=== PATIENT | male | born 1935 | race Caucasian/White ===

== ENCOUNTER → 2018-02-12 | Day surgery (SDC) | payer MEDICARE, OTHER ==
[~2018-02-12] MED LIST: Dextrose 5%-0.45% NaCl 1,000 ML IV SCH; Midazolam 1 MG/ML 2 ML SDV IV ONE; Midazolam 1 MG/ML 2 ML SDV ONE; Sodium Chloride 0.9% 10 ML Syringe FLUSH PRN; fentaNYL 100 MCG/2 ML SDV IV ONE; fentaNYL 100 MCG/2 ML SDV ONE
--- NOTE | 2018-02-12 14:08 | OR ---
DATE: 02/12/2018 PROCEDURES PERFORMED: Total colonoscopy, NBI including magnification views and piecemeal cold snare polypectomy. INSTRUMENT USED: CF-H180AL Olympus video colonoscope. PREMEDICATIONS: Fentanyl 100 mcg intravenous, Versed 3 mg intravenous. Nasal O2 cannula. The procedure was done under pulse oximetry, BP recording, and hospital monitor. INDICATIONS: The patient with progress of constipation, unexplained and not responsive to medical measures. Had previous chronic tubular adenoma. Colonoscopic examination was done for detection of any polypoid lesions and removal, endoscopic hemostasis therapy if needed. DESCRIPTION OF PROCEDURE: Initial rectal exam was unremarkable. Rigid anoscopy was normal. The colonoscope was passed with ease. Few diverticula were noted in the distal left colon. The colon was found to be tortuous and redundant. The bowel perforation was found to be adequate. The scope was passed with ease to the ileocecal area, photographs were taken of the cecum, identified by landmarks of appendiceal orifice and double-bulged ileocecal folds. In the proximal ascending colon, submucosal benign 1 cm sized lesion noted with fatty yellowish appearance consistent with lipoma. No stricture, no vascular ectasia, no large isolated ulcerations seen. No evidence of diffuse inflammatory bowel disease in the form of friability, contact bleeding, or ulcerations. In the proximal transverse colon, superficial 1 cm sized benign-appearing sessile polyp noted, magnification as well as NBI views were obtained. Photographs were taken. Piecemeal cold snare polypectomy was done, the tissues were retrieved and sent for histopathology. Probing the proximal sides of folds and flexures, using adequate distention and clearing up the stool material, withdrawal of the scope was made. No bleeding was noted from any of the visualized areas at the completion of examination. IMPRESSION: 1. Ascending colon lipoma. 2. Transverse colon polyp. 3. Diverticulosis. The patient tolerated the procedure well. [facility] /[id number]
--- NOTE | 2018-02-12 14:29 | LETTER ---
02/12/[address] [facility] [address] [place], [place] [address] RE: PINO REHMAN : 1935 Dear Ms. Rudd. Mr. Serjio Rehman had colonoscopic examination done this morning and he tolerated the procedure well. I herewith send a copy of the endoscopy note and photographs for your review. Thank you. Sincerely, [facility] /[id number]
== END ==
LOC: DL.ENDO 06:23
PROVIDERS: ATTEND Internal Medicine Gastroenterology
DX: K59.00 Constipation, unspecified (principal); R10.9 Unspecified abdominal pain; D12.3 Benign neoplasm of transverse colon; I10 Essential (primary) hypertension; K57.30 Diverticulosis of large intestine without perforation or abscess without bleeding; K59.09 Other constipation; F41.1 Generalized anxiety disorder; Z86.010 Personal history of colon polyps; Z88.8 Allergy status to other drugs, medicaments and biological substances
CPT/HCPCS: J2250; J3010; J7042

== ENCOUNTER 2018-09-29 06:25 | Day surgery (SDC) | payer MEDICARE, OTHER ==
[~2018-09-29 06:25] MED LIST changes: -Midazolam 1 MG/ML 2 ML SDV IV ONE; -fentaNYL 100 MCG/2 ML SDV IV ONE
[2018-09-29] MEDS ORDERED: Midazolam 1 MG/ML 2 ML SDV IV ONE ×6 (06:26→07:52)
[2018-09-29] MEDS ORDERED: fentaNYL 100 MCG/2 ML SDV IV ONE ×3 (06:26→07:45)
--- NOTE | 2018-09-29 09:35 | OR ---
DATE: 09/29/2018 PROCEDURES: Total colonoscopy, narrow-band imaging, and cold snare polypectomy. INSTRUMENT USED: PCF-H180 AL Olympus video colonoscope. PREMEDICATIONS: Fentanyl 100 mcg intravenous, Versed 3 mg intravenous. Nasal O2 cannula. The procedure was done under pulse oximetry, BP recording, and cardiac technologist. INDICATION: The patient with previous sessile colonic adenoma removal. Colonoscopic examination is done for detection of any residual sessile polyp and removal. Endoscopic hemostasis therapy if needed. DESCRIPTION OF PROCEDURE: Initial rectal exam showed some perianal deformity. Limited rigid anoscopic exam unremarkable. The colonoscope was passed with ease. 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 Numerous scattered diverticula were noted in the distal left colon along with deformity. The scope was passed with ease up to the ileocecal area. Photographs were taken of the normal-appearing cecum identified by landmarks of appendiceal orifice and double-bulged ileocecal folds. No bleeding was noted from any of the visualized areas at the commencement of the examination. The bowel preparation was found to be adequate, [place] Scale 2. No stricture. No vascular ectasia. No large isolated ulcerations seen. No evidence of diffuse inflammatory bowel disease in the form of friability, contact bleeding, or ulcerations. Probing the proximal sides of folds and flexures, using adequate distention and clearing up the stool material, withdrawal of the scope was made. In the mid transverse colon area, 5- mm sized benign-appearing polyp was noted. NBI views were taken. Photographs were taken. Cold snare polypectomy was done. The tissue was retrieved and sent for histopathology. No bleeding was noted from any of the visualized areas at the completion of examination. IMPRESSION: 1. Melanosis coli. 2. Diverticulosis. 3. Colonic polyp. The patient tolerated the procedure well. [facility] /[id number]
== END 2018-09-29 10:17 | disposition home or self-care (01) ==
LOC: DL.ENDO 06:25
PROVIDERS: ATTEND Internal Medicine Gastroenterology
DX: Z12.11 Encounter for screening for malignant neoplasm of colon (principal); D12.3 Benign neoplasm of transverse colon; K57.30 Diverticulosis of large intestine without perforation or abscess without bleeding; K63.89 Other specified diseases of intestine; I10 Essential (primary) hypertension; N40.0 Benign prostatic hyperplasia without lower urinary tract symptoms; M19.90 Unspecified osteoarthritis, unspecified site; F41.1 Generalized anxiety disorder; Z86.010 Personal history of colon polyps
CPT/HCPCS: 45385; J2250; J3010; J7042